=== PATIENT | female | born 1985 | race Caucasian/White ===

== ENCOUNTER → 2020-02-14 | Outpatient (CLI) | payer BC ==
[~2020-02-14] MED LIST: AMITRIPTYLINE10 MG PO; CETIRIZINE; SINGULAIR10 MG PO
== END ==
LOC: COL.LAB 13:05
DX: J30.1 Allergic rhinitis due to pollen (principal)

== ENCOUNTER → 2020-05-02 | Outpatient (CLI) | payer BC | LOC: ZCOL.LAB 20:08 | DX: Z20.828 Contact with and (suspected) exposure to other viral communicable diseases (principal) ==